=== PATIENT | male | born 1965 | race Caucasian/White ===

== ENCOUNTER 2022-10-20 12:44 | Inpatient (IN) | payer OTHER ==
[2022-10-20 14:26] VITALS: BMI 22.7
[2022-10-20] MEDS ORDERED: COLLOIDAL OATMEAL 1 BAR EACH TP PRN (14:49)
[2022-10-20] MEDS ORDERED: guaiFENesin 600 MG TABLET.ER (FP) PO PRN (14:49)
[2022-10-20] MEDS ORDERED: LOPERAMIDE HCL 2 MG CAPSULE PO PRN (14:49)
[2022-10-20] MEDS ORDERED: NALOXONE HCL (KLOXXADO) 8 MG SPRAY NS PRN (14:49)
[2022-10-20] MEDS ORDERED: BENZOCAINE/MENTHOL (CHLORASEPTIC ) LOZENGE MM PRN (14:49)
[2022-10-20] MEDS ORDERED: ONDANSETRON *ODT* 4 MG TABLET SL PRN (14:49)
[2022-10-20] MEDS ORDERED: methaDONE HCL 10 MG TABLET (FOR DETOX USE ONLY) PO ONE (14:49)
[2022-10-20] MEDS ORDERED: MAG HYDROX/AL HYDROX/SIMETH 30 ML UNIT-DOSE CUP PO PRN (14:49)
[2022-10-20] MEDS ORDERED: AMMONIUM LACTATE 12% LOTION 225 GM BOTTLE TP PRN (14:49)
[2022-10-20] MEDS ORDERED: DICYCLOMINE HCL 10 MG CAPSULE PO PRN (14:49)
[2022-10-20] MEDS ORDERED: IBUPROFEN 400 MG TABLET (FP) PO PRN (14:49)
[2022-10-20] MEDS ORDERED: cloNIDine HCL 0.1 MG TABLET PO PRN (14:49)
[2022-10-20] MEDS ORDERED: POLYETHYLENE GLYCOL (HEALTHYLAX) 3350 17 GM PACKET PO PRN (14:49)
[2022-10-20] MEDS ORDERED: IBUPROFEN 600 MG TABLET (FP) PO PRN (14:49)
[2022-10-20] MEDS ORDERED: BENZONATATE 200 MG CAPSULE PO PRN (14:49)
[2022-10-20] MEDS ORDERED: MAGNESIUM HYDROX 2400MG/30ML ORAL SUSPENSION 30 ML CUP PO PRN (14:49)
[2022-10-20] MEDS ORDERED: NALOXONE HCL 0.4 MG/ML VIAL IM PRN (14:49)
[2022-10-20] MEDS ORDERED: BISMUTH SUBSALICYLATE 262 MG/15 ML BTL PO PRN (14:49)
[2022-10-20] MEDS ORDERED: ACETAMINOPHEN 325 MG TABLET (FP) PO PRN (14:49)
[2022-10-20] MEDS ORDERED: NICOTINE 21 MG/24 HOURS TOPICAL PATCH ONE (16:20)
[2022-10-20] MEDS ORDERED: methaDONE HCL 10 MG TABLET (FOR DETOX USE ONLY) ONE (16:21)
[2022-10-20] MEDS: NICOTINE 21 MG/24 HOURS TOPICAL PATCH TD SCH (16:30)
[2022-10-20] MEDS: NICOTINE 10 MG CARTRIDGE (INHALER) IH PRN (18:27)
[2022-10-20] MEDS: MELATONIN 5 MG TABLETS PO SCH (22:03)
[2022-10-20] MEDS: THIAMINE HCL 100 MG TABLET (FP) PO SCH (22:03)
[2022-10-20] MEDS: hydrOXYzine PAMOATE 25 MG CAPSULE (FP) PO PRN (22:03)
[2022-10-20] MEDS: METHOCARBAMOL 500 MG TABLET PO PRN (22:03)
[2022-10-21] MEDS: NICOTINE 10 MG CARTRIDGE (INHALER) IH PRN ×2 (01:04→12:18)
[2022-10-21] MEDS ORDERED: NITROGLYCERIN SUBLINGUAL 1/150 0.4 MG TAB SL PRN (09:11)
[2022-10-21] MEDS ORDERED: ALBUTEROL SO4 HFA INHALER IH PRN (09:16)
[2022-10-21] MEDS: ASPIRIN 81 MG CHEWABLE TABLETS PO SCH (10:08)
[2022-10-21] MEDS: BUDESONIDE/FORMETEROL FUMARATE 160/4.5 mcg INHALER IH SCH ×2 (10:08→22:12)
[2022-10-21] MEDS: PRENATAL VITAMINS W/ FOLIC ACID TABLET (FP) PO SCH (10:08)
[2022-10-21] MEDS: DOCUSATE SODIUM 100 MG CAPSULE (FP) PO SCH ×2 (10:09→22:13)
[2022-10-21] MEDS: LISINOPRIL 10 MG TABLET PO SCH (10:09)
[2022-10-21] MEDS: METOPROLOL TARTRATE 25 MG TABLET (FP) PO SCH (10:09)
[2022-10-21] MEDS: NICOTINE 21 MG/24 HOURS TOPICAL PATCH TD SCH (10:10)
[2022-10-21 11:32] LABS: HEMATOCRIT 43.1 % (35.4-49); HEMOGLOBIN 14.3 GM/dL (11.7-16.9); MCH 28.9 pg (25.7-33.7); MCHC 33.3 g/dl (32.0-35.9); MEAN CELL VOLUME 86.8 fl (80-96); PLATELET COUNT 215 10^3/uL (134-434); RBC 4.96 M/mm3 (4.00-5.60); RDW 13.2 % (11.9-15.9); WHITE BLOOD COUNT 11.4 K/mm3 (4.0-10.0)
[2022-10-21] MEDS: hydrOXYzine PAMOATE 25 MG CAPSULE (FP) PO PRN ×2 (13:06→22:12)
[2022-10-21] MEDS: METHOCARBAMOL 500 MG TABLET PO PRN ×2 (13:06→22:12)
[2022-10-21 13:38] LABS: POTASSIUM 4.3 mmol/L (3.5-5.1)
[2022-10-21 13:42] LABS: ALBUMIN 3.4 g/dl (3.4-5.0); BLOOD UREA NITROGEN 23.5 mg/dL (7-18); CALCIUM 9.3 mg/dL (8.5-10.1)
[2022-10-21 13:45] LABS: CREATININE 0.7 mg/dL (0.55-1.3)
[2022-10-21 13:47] LABS: BILIRUBIN,TOTAL 0.4 mg/dL (0.2-1); TOT PROT 6.4 g/dl (6.4-8.2)
[2022-10-21] MEDS: THIAMINE HCL 100 MG TABLET (FP) PO SCH (22:12)
[2022-10-21] MEDS: MELATONIN 5 MG TABLETS PO SCH (22:13)
[2022-10-21] MEDS: DIVALPROEX NA *ER* EXTEND REL 500 MG TABLET.SA (FP) PO SCH (22:13)
[2022-10-22] MEDS ORDERED: methaDONE HCL 10 MG TABLET (FOR DETOX USE ONLY) PO ONE (10:00)
[2022-10-22] MEDS: LISINOPRIL 10 MG TABLET PO SCH (10:02)
[2022-10-22] MEDS: PRENATAL VITAMINS W/ FOLIC ACID TABLET (FP) PO SCH (10:02)
[2022-10-22] MEDS: ASPIRIN 81 MG CHEWABLE TABLETS PO SCH (10:02)
[2022-10-22] MEDS: METOPROLOL TARTRATE 25 MG TABLET (FP) PO SCH (10:02)
[2022-10-22] MEDS: DOCUSATE SODIUM 100 MG CAPSULE (FP) PO SCH ×2 (10:02→22:18)
[2022-10-22] MEDS: NICOTINE 21 MG/24 HOURS TOPICAL PATCH TD SCH (10:03)
[2022-10-22] MEDS: BUDESONIDE/FORMETEROL FUMARATE 160/4.5 mcg INHALER IH SCH ×2 (10:03→22:18)
[2022-10-22] MEDS: NICOTINE 10 MG CARTRIDGE (INHALER) IH PRN ×2 (13:01→21:58)
[2022-10-22] MEDS: METHOCARBAMOL 500 MG TABLET PO PRN ×2 (13:15→22:18)
[2022-10-22] MEDS: hydrOXYzine PAMOATE 25 MG CAPSULE (FP) PO PRN ×2 (13:15→22:18)
[2022-10-22] MEDS ORDERED: diazePAM 5 MG TABLET PO ONE (13:45)
[2022-10-22] MEDS: MELATONIN 5 MG TABLETS PO SCH (22:18)
[2022-10-22] MEDS: THIAMINE HCL 100 MG TABLET (FP) PO SCH (22:18)
[2022-10-22] MEDS: DIVALPROEX NA *ER* EXTEND REL 500 MG TABLET.SA (FP) PO SCH (22:18)
[2022-10-23] MEDS: BUDESONIDE/FORMETEROL FUMARATE 160/4.5 mcg INHALER IH SCH ×2 (10:20→22:12)
[2022-10-23] MEDS: PRENATAL VITAMINS W/ FOLIC ACID TABLET (FP) PO SCH (10:20)
[2022-10-23] MEDS: METOPROLOL TARTRATE 25 MG TABLET (FP) PO SCH (10:20)
[2022-10-23] MEDS: DOCUSATE SODIUM 100 MG CAPSULE (FP) PO SCH ×2 (10:20→22:13)
[2022-10-23] MEDS: ASPIRIN 81 MG CHEWABLE TABLETS PO SCH (10:20)
[2022-10-23] MEDS: LISINOPRIL 10 MG TABLET PO SCH (10:21)
[2022-10-23] MEDS: hydrOXYzine PAMOATE 25 MG CAPSULE (FP) PO PRN ×2 (10:22→19:13)
[2022-10-23] MEDS: NICOTINE 21 MG/24 HOURS TOPICAL PATCH TD SCH (10:25)
[2022-10-23] MEDS ORDERED: LISINOPRIL 10 MG TABLET PO ONE (22:05)
[2022-10-23] MEDS: THIAMINE HCL 100 MG TABLET (FP) PO SCH (22:13)
[2022-10-23] MEDS: DIVALPROEX NA *ER* EXTEND REL 500 MG TABLET.SA (FP) PO SCH (22:13)
[2022-10-23] MEDS: MELATONIN 5 MG TABLETS PO SCH (22:14)
[2022-10-23] MEDS: NICOTINE 10 MG CARTRIDGE (INHALER) IH PRN (22:26)
[2022-10-24] MEDS: hydrOXYzine PAMOATE 25 MG CAPSULE (FP) PO PRN (05:44)
[2022-10-24] MEDS: NICOTINE POLACRILEX 2 MG GUM BUC PRN ×2 (07:43→10:09)
[2022-10-24] MEDS: NICOTINE 10 MG CARTRIDGE (INHALER) IH PRN (08:48)
[2022-10-24 09:48] VITALS: BP 154/108; PULSE 96; RESP 17; TEMP 97.7
[2022-10-24] MEDS ORDERED: methaDONE HCL 10 MG TABLET (FOR DETOX USE ONLY) PO ONE (10:00)
[2022-10-24] MEDS: PRENATAL VITAMINS W/ FOLIC ACID TABLET (FP) PO SCH (10:07)
[2022-10-24] MEDS: NICOTINE 21 MG/24 HOURS TOPICAL PATCH TD SCH (10:07)
[2022-10-24] MEDS: DOCUSATE SODIUM 100 MG CAPSULE (FP) PO SCH (10:08)
[2022-10-24] MEDS: LISINOPRIL 10 MG TABLET PO SCH (10:08)
[2022-10-24] MEDS: BUDESONIDE/FORMETEROL FUMARATE 160/4.5 mcg INHALER IH SCH (10:08)
[2022-10-24] MEDS: ASPIRIN 81 MG CHEWABLE TABLETS PO SCH (10:08)
[2022-10-24] MEDS: METOPROLOL TARTRATE 25 MG TABLET (FP) PO SCH (10:08)
== END 2022-10-24 11:55 | disposition home or self-care (01) | DRG 773 ==
LOC: YASAS 12:44 → Y6N 14:42
PROVIDERS: ADMIT Allergy & Immunology; ATTEND Surgery
PROC: HZ2ZZZZ Detoxification Services for Substance Abuse Treatment (ICD-10-PCS; principal; 2022-10-20)
DX: F11.23 Opioid dependence with withdrawal (principal); F17.210 Nicotine dependence, cigarettes, uncomplicated; F19.282 Other psychoactive substance dependence with psychoactive substance-induced sleep disorder; F31.9 Bipolar disorder, unspecified; E78.5 Hyperlipidemia, unspecified; J44.9 Chronic obstructive pulmonary disease, unspecified; I25.10 Atherosclerotic heart disease of native coronary artery without angina pectoris; I10 Essential (primary) hypertension; Z95.5 Presence of coronary angioplasty implant and graft; J30.2 Other seasonal allergic rhinitis; Z62.810 Personal history of physical and sexual abuse in childhood; Z91.410 Personal history of adult physical and sexual abuse; Z28.310 Unvaccinated for COVID-19; Z28.9 Immunization not carried out for unspecified reason
CPT/HCPCS: 36415; 80053; 84520; 85027; 86780; 87635; 87811; 93005; 93010